=== PATIENT | male | born 1975 | race Caucasian/White ===

== ENCOUNTER 2024-05-09 14:22 | Emergency (ER) | payer BC ==
[~2024-05-09] VITALS: Ht 180.3 cm; Wt 113.4 kg
[2024-05-09 14:34] VITALS: TEMP 98.3
[2024-05-09] MEDS: diphenhydrAMINE HCL 50 MG/ML VIAL IV ONE (16:20)
[2024-05-09] MEDS: IV NS 0.9% 1,000 ML BAG IV ONE (16:20)
[2024-05-09] MEDS: METOCLOPRAMIDE HCL 10 MG/2 ML VIAL IV ONE (16:20)
[2024-05-09] MEDS: KETOROLAC TROMETHAMINE 15 MG/ML VIAL IV ONE (16:21)
[2024-05-09] MEDS ORDERED: diphenhydrAMINE HCL 50 MG/ML VIAL ONE (16:22)
[2024-05-09] MEDS ORDERED: KETOROLAC TROMETHAMINE 15 MG/ML VIAL ONE (16:22)
[2024-05-09] MEDS ORDERED: METOCLOPRAMIDE HCL 10 MG/2 ML VIAL ONE (16:23)
[2024-05-09] MEDS ORDERED: IBUP-1957 PO (18:09)
[2024-05-09] MEDS ORDERED: ACET-2605 PO (18:09)
[2024-05-09 18:23] VITALS: BP 134/72; O2SAT 98
== END 2024-05-09 18:23 | disposition home or self-care (01) ==
LOC: ER 14:37
DX: R51.9 Headache, unspecified (principal); H53.149 Visual discomfort, unspecified; R11.0 Nausea; I10 Essential (primary) hypertension; F19.10 Other psychoactive substance abuse, uncomplicated; F17.200 Nicotine dependence, unspecified, uncomplicated; Z88.0 Allergy status to penicillin; Z60.2 Problems related to living alone
CPT/HCPCS: 99284; 96374; 96375; 96361; J1200; J2765; J7030; J1885